=== PATIENT | male | born 1970 | race Caucasian/White ===

== ENCOUNTER → 2016-08-06 | Outpatient (CLI) | payer OTHER ==
--- NOTE | 2016-08-06 12:46 | DIAGNOSTIC IMAGING REPORT ---
TESTICULAR ULTRASOUND CLINICAL HISTORY: TESTICULAR PAIN COMPARISON STUDY: No previous studies for comparison. FINDINGS: The right testis measures 39 x 18 x 20 mm. The left testis measures 40 x 17 x 27 mm. There is no evidence of testicular torsion. No intratesticular masses are visualized. There is no evidence of epididymal hyperemia. There are tiny bilateral epididymal cysts. IMPRESSION: 1. No acute findings. 2. No evidence of testicular torsion. 3. No evidence of intratesticular mass. Electronically signed by: Jarod Jett M.D. 08/06/2016 12:45 PM Dictated Date/Time: 08/06/2016 12:43 PM
== END | disposition home or self-care (01) ==
LOC: C.ULTRBC 11:59
PROVIDERS: ATTEND Urology
DX: N50.819 Testicular pain, unspecified (principal)